=== PATIENT | male | born 1995 | race Caucasian/White ===

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

== ENCOUNTER 2022-11-18 19:53 | Emergency (ER) | payer OTHER, SELFPAY ==
[~2022-11-18] VITALS: Ht 175.3 cm; Wt 65.9 kg
[2022-11-18 19:53] VITALS: BP 136/71; TEMP 99; O2SAT 99
[~2022-11-18 19:53] MED LIST: TESS100C PO; ZITHTAB PO
[2022-11-18] MEDS ORDERED: IBUPROFEN 600MG TAB PO ONE (20:50)
[2022-11-18] MEDS ORDERED: IBUP-1022 PO (20:52)
== END 2022-11-18 21:03 | disposition home or self-care (01) ==
LOC: M ED 19:53
DX: S90.31XA Contusion of right foot, initial encounter (principal); Y93.02 Activity, running; W22.8XXA Striking against or struck by other objects, initial encounter; Y92.007 Garden or yard of unspecified non-institutional (private) residence as the place of occurrence of the external cause